=== PATIENT | male | born 1965 | race African-American/Black ===

== ENCOUNTER 2023-11-11 08:03 | Emergency (ER) | payer SELFPAY ==
[~2023-11-11] VITALS: Ht 180.3 cm; Wt 83.9 kg
[2023-11-11 08:15] VITALS: BP 218/114; PULSE 72; RESP 16; TEMP 98.3; O2SAT 99
[2023-11-11] MEDS ORDERED: IBUP-2030 MT (08:36)
== END 2023-11-11 09:06 | disposition home or self-care (01) ==
LOC: ER 08:22
DX: L72.3 Sebaceous cyst (principal)
CPT/HCPCS: 99282